=== PATIENT | female | born 1955 | race American Indian/Alaskan Native ===

== ENCOUNTER 2020-09-14 02:02 | Emergency (ER) | payer SELFPAY ==
[2020-09-14 02:55] VITALS: BP 119/81
[2020-09-14] MEDS ORDERED: ACETAMINOPHEN 500 MG TAB PO ONE (02:55)
[2020-09-14] MEDS ORDERED: IBUPROFEN 800 MG TAB PO ONE (02:55)
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
--- NOTE | 2020-09-14 04:06 | Vascular Lab Report ---
DUPLEX DOPPLER LOWER EXTREMITY VEINS, LEFT INDICATION / CLINICAL INFORMATION: Left leg pain. TECHNIQUE: Duplex doppler imaging was performed through the veins of the left lower extremity using v enous compression and other maneuvers. COMPARISON: None available. FINDINGS: LEFT COMMON FEMORAL VEIN: Negative. LEFT FEMORAL VEIN: Negative. LEFT POPLITEAL VEIN: Negative. LEFT CALF VEINS: Negative. ADDITIONAL FINDINGS: None. IMPRESSION: 1. No sonographic evidence for DVT in the left lower extremity. Signer Name: Grace Sam MD Signed: 09/14/2020 4:01 AM Workstation Name: [id number]
== END 2020-09-14 04:29 | disposition home or self-care (01) ==
LOC: ED 02:02
DX: G89.18 Other acute postprocedural pain (principal); Z51.89 Encounter for other specified aftercare; Z79.899 Other long term (current) drug therapy; Z48.02 Encounter for removal of sutures